=== PATIENT | female | born 1970 | race Caucasian/White ===

== ENCOUNTER 2019-12-29 18:39 | Emergency (ER) | payer OTHER, SELFPAY ==
[2019-12-29] VITALS (10 sets, daily range): BP systolic 101–130; BP diastolic 73–88; PULSE 54–79; RESP 14–21; TEMP 36.7; O2SAT 96–100
--- NOTE | ~2019-12-29 | XR_ITS ---
EXAMINATION: XR chest 2V DATE: 12/29/2019 19:15 INDICATION: Chest pressure. TECHNIQUE: Frontal and lateral views of the chest were obtained. COMPARISON: None. FINDINGS: The chest demonstrates clear lungs without pneumonia, pleural effusion, or pneumothorax. Th e heart size is normal. IMPRESSION: 1. No acute cardiopulmonary disease. Reviewed, dictated and finalized at location A.
--- NOTE | 2019-12-29 18:49 | ECG_ITS ---
Measurements Intervals [place] Rate: 71 P: 38 [place]: 114 QRS: 67 QRSD: 80 T: 42 QT: 381 QTc: 414 Interpretive Statements SINUS RHYTHM WITH SHORT [place] INTERVAL BASELINE ARTIFACT- I, III, AVL BORDERLINE ECG Electronically Signed On 12-30-2019 7:03:53 CDT by Jean Paul Benitez D.O.
[2019-12-29] MEDS: ASPIRIN 81 MG CHEWABLE TABLET 324 MG PO (18:55)
[2019-12-29 19:38] LABS: Basophils Percent Auto 0.3 % (0.2-1.2); Eosinophils Percent Auto 0.2 % (0-4.4); Hematocrit 38.6 % (37.0-47.0); Hemoglobin 13.4 g/dL (12.0-15.0); Immature Granulocyte Absolute 0.01 K/mm3 (0.00-0.031); Immature Granulocyte Percent A 0.2 % (0-0.5); Lymphocytes Absolute Auto 2.92 K/mm3 (0.9-3.2); Lymphocytes Percent Auto 44.6 % (18.3-44.2); Mean Corpuscular HGB Conc 34.7 g/dl (32-36); Mean Corpuscular Hemoglobin 28.9 pg (26-34); Mean Corpuscular Volume 83.4 fl (80-100); Mean Platelet Volume 9.9 fl (7.4-10.4); Monocytes Absolute Auto 0.4 K/mm3 (0.1-0.6); Monocytes Percent Auto 6.6 % (2.6-8.5); Neutrophils Absolute Auto 3.2 K/mm3 (1.3-6.7); Neutrophils Percent Auto 48.1 % (45.5-73.1); Platelet Count Result 319 k/mm3 (150-375); Red Blood Count 4.63 M/mm3 (4.2-5.4); Red Cell Distribution Width 12.4 % (11.5-14.5); White Blood Count 6.5 K/mm3 (4.5-10.0)
--- NOTE | 2019-12-29 19:38 | ED.GENADULT ---
HPI - General Adult General Chief complaint: Chest Pain Stated complaint: chest pain, palpitations Time Seen by Provider: 12/29/19 19:05 History of Present Illness HPI narrative: Patient is a 49-year-old female who presents the ER with anxiety versus chest pain. Patient reports that she had about 50 people over to her home in an outdoor setting 3 days ago for a graduation green party for her son. She was then told today that 1 of the guests was going to undergo COVID testing because they have been exposed to another friend. That person is asymptomatic. Patient reports she has been thinking about that all day and that coupled with her mom's history of anxiety and depression and being hospitalized in a prison has been giving her great stress. Patient's pain is central pressure and associate with anxiety, tachypnea, and tingling of her lips and hands and feet. She is found no alleviating factors. Related Data Home Medications Medication Instructions Recorded Confirmed No Home Medications 12/29/19 12/29/19 Allergies Allergy/AdvReac Type Severity Reaction Status Date / Time minocycline Allergy Unknown Dizziness Verified 12/29/19 19:33 Review of Systems Review of Systems: All systems reviewed & are unremarkable except as noted in HPI and below Constitutional: Constitutional: Denies chills, Denies fever(s) and Denies weakness ENT: Denies nasal congestion and Denies sore throat Cardiovascular: Cardiovascular: Reports chest pain, Denies rapid heart rate and Denies radiating jaw, neck or arm pain Respiratory: Respiratory: Denies cough, Reports dyspnea and Denies wheezing Gastrointestinal: Gastrointestinal: Denies diarrhea, Denies nausea and Denies vomiting Neurologic: Denies focal weakness and Reports numbness Psychiatric: Psychiatric: Reports anxiety PMFSH Past Medical History Medical History (Updated 12/29/19 @ 21:30 by Simon Oscar MD) Anxiety Depression Surgical History Surgical History (Updated 12/29/19 @ 19:40 by Simon Oscar MD) No pertinent past surgical history Social History Social History Smoking status: Never smoker Second hand tobacco smoke exposure: No Alcohol intake: current Exam Narrative: Exam Narrative: GENERAL: Anxious-appearing, well-nourished, and in no acute distress. HEAD: Normocephalic, atraumatic. CHEST: Clear to auscultation. No respiratory distress. HEART: Regular rate and rhythm. Normal peripheral pulses. ABDOMEN: Soft, nontender, nondistended. EXTREMITIES: Normal range of motion. No edema. SKIN: Warm, dry, no rash. NEURO: Alert and oriented x3. PSYCH: Normal mood and affect. Course Course Emergency Course: Symptoms resolved with Ativan. Discharge home. Vital Signs Vital signs: Vital Signs Temperature 98.0 F 12/29/19 18:45 Pulse Rate 78 12/29/19 18:45 Respiratory Rate 18 12/29/19 18:45 Blood Pressure 130/80 12/29/19 18:45 Pulse Oximetry 100 12/29/19 18:45 Temperature 98.0 F 12/29/19 18:45 Pulse Rate 54 L 12/29/19 20:16 Respiratory Rate 18 12/29/19 20:16 Blood Pressure 113/73 12/29/19 20:16 Pulse Oximetry 97 12/29/19 20:16 Medical Decision Making Vital Signs Vital Signs: Vital Signs Temperature 98.0 F 12/29/19 18:45 Pulse Rate 78 12/29/19 18:45 Respiratory Rate 18 12/29/19 18:45 Blood Pressure 130/80 12/29/19 18:45 Pulse Oximetry 100 12/29/19 18:45 Temperature 98.0 F 12/29/19 18:45 Pulse Rate 54 L 12/29/19 20:16 Respiratory Rate 18 12/29/19 20:16 Blood Pressure 113/73 12/29/19 20:16 Pulse Oximetry 97 12/29/19 20:16 Lab Data Result diagrams: 12/29/19 19:30 12/29/19 19:30 Labs: Lab Results 12/29/19 12/29/19 12/29/19 Range/Units 19:30 19:30 19:30 WBC 6.5 (4.5-10.0) K/mm3 RBC 4.63 (4.2-5.4) M/mm3 Hgb 13.4 (12.0-15.0) g/dL Hct 38.6 (37.0-47.0) %
[2019-12-29 19:49] LABS: Prothrombin Time 12.7 Seconds (11.1-14.7)
[2019-12-29 19:50] LABS: Partial Thromboplastin Time 25.3 SECONDS (22.3-36.8)
[2019-12-29 19:51] LABS: Blood Urea Nitrogen 3 mg/dL (7-17); Calcium 9.4 mg/dL (8.4-10.2); Carbon Dioxide 23 mmol/L (22-30); Chloride 105 mmol/L (98-107); Estimated CRCL calculation 76 ml/min; Estimated Glomerular Filt Rate > 60; Glucose 103 mg/dL (65-105); Potassium 3.1 mmol/L (3.4-5.0); Sodium 138 mmol/L (137-145)
[2019-12-29 20:03] LABS: Troponin I < 0.012 ng/mL (0.000-0.034)
== END 2019-12-29 21:53 | disposition home or self-care (01) ==
PROVIDERS: Emergency Medicine; Emergency Provider Emergency Medicine; PCP Family Medicine
DX: F41.9 Anxiety disorder, unspecified (principal); R93.1 Abnormal findings on diagnostic imaging of heart and coronary circulation
CPT/HCPCS: 36415; 71046; 80048; 84484; 85025; 85610; 85730; 93005; 96374; 99284; A9270; J2060

== ENCOUNTER → 2020-07-13 16:16 | Outpatient (CLI) | payer OTHER, SELFPAY ==
--- NOTE | ~2020-07-13 | MM_ITS ---
EXAMINATION: MM screening [facility] BI w lisa HISTORY: Screening mammogram TECHNIQUE: Craniocaudal and mediolateral oblique 3-D tomosynthesis images were obtained and synthetic 2-D images were generated. CAD analysis was submitted and interpreted. COMPARISON: 03/09/2019, 01/20/2018 bilateral digital screening mammogram examinations 8. 20 diagnostic left digital mammogram 01/2017, 01/04/2016, 11/10/2014, 11/04/2013 bilateral digital screening mammogram BREAST PARENCHYMAL COMPOSITION: The breasts are extremely dense, which lowers the sensitivity of mamm ography. FINDINGS: Stable mild asymmetry. Bilateral benign calcifications, largely stable since 11/04/2013. The re is no evidence of suspicious mass, calcification, or architectural distortion to suggest malignanc y in either breast. There has been no suspicious interval change. IMPRESSION: 1. No mammographic evidence of malignancy. 2. Recommend routine screening mammography in one year. BI-RADS Category 2: Benign finding(s). Reviewed, dictated and finalized at location A. HT DISPATCHER
== END ==
PROVIDERS: Visit Provider Obstetrics & Gynecology
DX: Z12.31 Encounter for screening mammogram for malignant neoplasm of breast (principal)
CPT/HCPCS: 77063; 77067

== ENCOUNTER → 2021-10-18 17:00 | Outpatient (CLI) | payer OTHER, SELFPAY ==
--- NOTE | ~2021-10-18 | MM_ITS ---
EXAMINATION: MM screening [facility] BI w lisa HISTORY: Screening mammogram TECHNIQUE: Craniocaudal and mediolateral oblique 3-D tomosynthesis images were obtained and synthetic 2-D images were generated. CAD analysis was submitted and interpreted. COMPARISON: 07/05/2020, 03/05/2019, 01/20/2018 bilateral screening mammogram examinations BREAST PARENCHYMAL COMPOSITION: The breasts are extremely dense, which lowers the sensitivity of mamm ography. FINDINGS: Stable mild fibroglandular asymmetry. Scattered bilateral benign calcifications. There is n o evidence of suspicious mass, calcification, or architectural distortion to suggest malignancy in ei ther breast. There has been no suspicious interval change. IMPRESSION: 1. No mammographic evidence of malignancy. 2. Recommend routine screening mammography in one year. BI-RADS Category 2: Benign finding(s). Reviewed, dictated and finalized at location A.
== END ==
PROVIDERS: PCP Family Medicine; Visit Provider Family Medicine
DX: Z12.31 Encounter for screening mammogram for malignant neoplasm of breast (principal)
CPT/HCPCS: 77063; 77067

== ENCOUNTER → 2023-01-02 10:00 | Outpatient (CLI) | payer OTHER, SELFPAY ==
--- NOTE | ~2023-01-02 | MM_ITS ---
EXAMINATION: MM screening [facility] BI w lisa HISTORY: Screening TECHNIQUE: Craniocaudal and mediolateral oblique 3-D tomosynthesis images were obtained and synthetic 2-D images were generated. CAD analysis was submitted and interpreted. COMPARISON: Comparison to multiple prior studies sequentially, with oldest reviewed study dated 09/2016. BREAST PARENCHYMAL COMPOSITION: The breasts are extremely dense, which lowers the sensitivity of mamm ography FINDINGS: There is no mammographic evidence for malignancy in the right breast. There is a cluster of indeterminate calcifications in the upper outer quadrant of the left breast, middle third. IMPRESSION: 1. Clustered indeterminate left breast calcifications, upper outer quadrant. 2. Magnification views are recommended. BI-RADS Category 0: Incomplete: Needs additional imaging evaluation. Reviewed, dictated and finalized at location A.
== END ==
PROVIDERS: PCP Obstetrics & Gynecology; Visit Provider Family Medicine
DX: Z12.31 Encounter for screening mammogram for malignant neoplasm of breast (principal); R92.8 Other abnormal and inconclusive findings on diagnostic imaging of breast
CPT/HCPCS: 77063; 77067

== ENCOUNTER → 2023-01-30 07:47 | Outpatient (CLI) | payer OTHER, SELFPAY ==
--- NOTE | ~2023-01-30 | MM_ITS ---
EXAMINATION: MM diagnostic mammo unilat LT HISTORY: Follow-up left breast calcifications TECHNIQUE: Additional 3-D tomosynthesis images of the left breast were performed and synthetic 2-D im ages were generated. CAD analysis was submitted and interpreted. COMPARISON: Comparison to multiple prior studies sequentially, with oldest reviewed study dated 12/2017. BREAST PARENCHYMAL COMPOSITION: The breasts are extremely dense, which lowers the sensitivity of mamm ography FINDINGS: The clustered indeterminate calcifications in the upper outer quadrant of the left breast h ave a monomorphic appearance and are most likely benign. IMPRESSION: 1. Clustered left breast calcifications are likely benign. 2. Recommend 6 month follow-up diagnostic bilateral mammogram BI-RADS category 3, probably benign findings. Reviewed, dictated and finalized at location A.
== END ==
PROVIDERS: PCP Family Medicine; Visit Provider Obstetrics & Gynecology
DX: R92.1 Mammographic calcification found on diagnostic imaging of breast (principal)
CPT/HCPCS: 77065

== ENCOUNTER 2023-08-07 07:54 | Outpatient (CLI) | payer OTHER, SELFPAY ==
--- NOTE | ~2023-08-07 | MM_ITS ---
EXAMINATION: MM diagnostic noam BI w lisa HISTORY: Follow-up left breast calcifications TECHNIQUE: Additional 3-D tomosynthesis images of the breasts were performed and synthetic 2-D images were generated. CAD analysis was submitted and interpreted. COMPARISON: Comparison to multiple prior studies sequentially, with oldest reviewed study dated 12/2017. BREAST PARENCHYMAL COMPOSITION: Dense: The breasts are extremely dense, which lowers the sensitivity of mammography. FINDINGS: Clustered punctate calcifications in the upper outer quadrant of the left breast are unchan ged from prior examination, likely benign. No suspicious masses or architectural distortion. No evide nce for malignancy in the right breast. IMPRESSION: 1. Stable likely benign left breast calcifications. 2. Recommend 6 month follow-up diagnostic left mammogram BI-RADS category 3, probably benign findings. Reviewed, dictated and finalized at location A. HERS' ASSISTANT
== END 2023-08-07 07:55 ==
LOC: MICIMG 07:55
PROVIDERS: PCP Obstetrics & Gynecology; Visit Provider Obstetrics & Gynecology
DX: R92.8 Other abnormal and inconclusive findings on diagnostic imaging of breast (principal)
CPT/HCPCS: 77062; 77066; G0279

== ENCOUNTER 2023-08-18 15:15 | Outpatient (CLI) | payer OTHER, SELFPAY ==
--- NOTE | ~2023-08-18 | XR_ITS ---
EXAMINATION: XR abdomen/kub 1V INDICATION: Unspecified abdominal pain TECHNIQUE: Supine views of the abdomen were obtained on 2 radiographs. COMPARISON: None FINDINGS: A moderate volume of colonic stool is present. There are phleboliths of the pelvis. No dila wade loops of bowel are identified. There is mild osteoarthritis of the hips. IMPRESSION: 1. Moderate volume of colonic stool. Reviewed, dictated and finalized at location L. ANTINE INSPECTOR
[2023-08-18 15:32] LABS: Hematocrit 41.3 % (37.0-47.0); Hemoglobin 13.3 g/dL (12.0-15.0); Mean Corpuscular HGB Conc 32.2 g/dl (32-36); Mean Corpuscular Hemoglobin 28.5 pg (26-34); Mean Corpuscular Volume 88.4 fl (80-100); Mean Platelet Volume 9.8 fl (7.4-10.4); Platelet Count Result 332 k/mm3 (150-375); Red Blood Count 4.67 M/mm3 (4.2-5.4); Red Cell Distribution Width 13.1 % (11.5-14.5); White Blood Count 6.4 K/mm3 (4.5-10.0)
[2023-08-18 15:44] LABS: Alanine Aminotransferase 20 U/L (6-35); Albumin Level 4.2 g/dL (3.5-5.1); Alkaline Phosphatase 50 U/L (38-126); Anion Gap 5 mmol/L (8-16); Aspartate Amino Transferase 25 U/L (14-36); Bilirubin,Total 0.6 mg/dL (0.2-1.3); Blood Urea Nitrogen 10 mg/dL (7-17); Calcium 8.7 mg/dL (8.4-10.2); Carbon Dioxide 28 mmol/L (22-30); Chloride 102 mmol/L (98-107); Estimated Glomerular Filt Rate > 60; Glucose 130 mg/dL (65-110); Lipase 136 U/L (23-300); Potassium 3.3 mmol/L (3.4-5.0); Sodium 135 mmol/L (137-145)
== END 2023-08-18 15:16 | disposition home or self-care (01) ==
LOC: ANHLAB 15:16
PROVIDERS: PCP Family Medicine; Visit Provider Physician Assistant
DX: D64.9 Anemia, unspecified (principal); R10.9 Unspecified abdominal pain; Z13.1 Encounter for screening for diabetes mellitus
CPT/HCPCS: 36415; 74018; 80053; 83690; 85027

== ENCOUNTER 2024-02-06 08:12 | Outpatient (CLI) | payer OTHER, SELFPAY ==
--- NOTE | ~2024-02-06 | MM_ITS ---
EXAMINATION: MM diagnostic noam LT w lisa HISTORY: Follow-up left breast calcifications TECHNIQUE: Additional 3-D tomosynthesis images of the left breast were performed and synthetic 2-D im ages were generated. CAD analysis was submitted and interpreted. COMPARISON: Comparison to multiple prior studies sequentially, with oldest reviewed study dated 03/09. BREAST PARENCHYMAL COMPOSITION: Dense: The breasts are extremely dense, which lowers the sensitivity of mammography. FINDINGS: There are no new masses or architectural distortion in the left breast to suggest malignanc y. There are stable punctate calcifications clustered in the upper outer quadrant of the left breast, likely benign. IMPRESSION: 1. Stable likely benign left breast calcifications. 2. Recommend 6 month follow-up diagnostic bilateral mammogram BI-RADS category 3, probably benign findings. Reviewed, dictated and finalized at location B.
== END 2024-02-06 08:13 ==
LOC: MICIMG 08:13
PROVIDERS: PCP Family Medicine; Visit Provider Obstetrics & Gynecology
DX: R92.1 Mammographic calcification found on diagnostic imaging of breast (principal); R92.8 Other abnormal and inconclusive findings on diagnostic imaging of breast
CPT/HCPCS: 77061; 77065; G0279

== ENCOUNTER 2024-02-12 02:10 | Day surgery (SDC) | payer OTHER, SELFPAY ==
[2024-02-10 09:28] VITALS: BMI 25.7
--- NOTE | 2024-02-10 09:34 | PC.NURSE ---
Report to the Outpatient Waiting Room, entrance under the green pavilion located off [facility], at time _1000_ on date _02/12/24_. Planned Procedure Time: _1200_.? Time changes happen often and if your time is changed the preop area will call you the afternoon before. - You and your visitor will be asked to self-screen and do not enter if you have any COVID symptoms. Please call surgeon if you need to reschedule. - A mask is optional within the hospital at this time. Patients may have clear liquids (water, carbonated beverages, clear teas, apple juice) until 3 hours prior to surgery with a maximum of 20 ounces. - No food from midnight until time of surgery and no smoking - Infants may have breast milk until 4 hours before surgery, infant formula 6 hours prior to surgery. - Children will be allowed to drink immediately following surgery.? If applicable, please bring a bottle or sippy cup to assist with drinking. Juice, water, soda, and popsicles are readily available.? For infants on formula, please bring formula the day of surgery.? Pacifiers are allowed. Take only the following medications with a SIP of water on the morning of surgery: __NONE DO NOT STOP ANY OF YOUR OTHER PRESCRIPTION MEDICATIONS PRIOR TO SURGERY EXCEPT THE FOLLOWING Medications to discontinue per physician ____VITAMINS Date to take last dose 02/09/23 Please no make-up, nail eritrean, hairspray, perfume, deodorant, or body powder the day of surgery.? No jewelry (including any body piercings) or valuables the day of surgery, leave them at home.? Please take a shower or bath the night before, or the morning of, surgery with an antibacterial soap.? Wear comfortable, loose fitting clothing.? Children are encouraged to wear pajamas. - Jewelry must be removed prior to entering the operating room.? Rings and piercings that are not removed may be cut off. - The hospital will not accept responsibility for valuables.? - Please leave all valuables, including medications, at home the day of surgery. If you are going home after surgery, a licensed lifter driver must drive you home.? - NO public transportation without another adult if you receive anesthesia. - We recommend that an adult stay with you for 24 hours following discharge. - We also recommend that you do not drive, make important decision, drink alcoholic beverages, or take any drugs that were not prescribed by your health care provider for at least 24 hours after your discharge time. For Pediatric surgeries, we recommend two adults accompany the child home. Follow any additional instructions given to you from your surgeon. Telephone instructions given to __PATIENT_and asked if any additional questions and then verbalized understanding. Patient advised to call surgeon office or pre surgery nurse liaison [phone] if any additional questions.
[2024-02-12] VITALS (10 sets, daily range): BP systolic 101–113; BP diastolic 69–79; PULSE 50–76; RESP 12–20; TEMP 36.2–36.6; O2SAT 95–100
--- NOTE | 2024-02-12 11:19 | WPDANESEPPF ---
Anes - Initial Pre Proc Eval Procedure: Operation Date: 02/12/24 12:00 Proposed Procedures p Leonid Bunionectomy with Hardware Implant Left Foot - Shaan Flores DPM Date/Time: 02/12/24 11:19 Surgeon: Shaan Flores DPM Pre Op Diagnosis: hallux valgus left foot Patient Data Age: 53 Gender: F Height: 1.65 m Weight: 73 kg Last Vital Signs Temp 97.9 F 02/12/24 10:35 Pulse 76 02/12/24 10:35 Resp 16 02/12/24 10:35 BP 102/76 02/12/24 10:35 Pulse Ox 100 02/12/24 10:35 O2 Del Method Room Air 02/12/24 10:35 Allergies Allergy/AdvReac Type Severity Reaction Status Date / Time minocycline Allergy Unknown Dizziness Verified 02/12/24 11:19 Home Medications Medication Instructions Recorded Confirmed Type multivitamin 1 tablet PO DAILY 09/11/20 02/12/24 History loratadine 10 mg tablet (Claritin) 10 mg PO DAILY 10/19/21 02/12/24 History norethindrone 1 mg-ethinyl 1 tablet PO DAILY #84 tabs 06/26/23 02/12/24 Rx estradiol 10 mcg (24)-iron 10 mcg(2) tablet (Lo Loestrin Fe) fluticasone propionate 50 1 spray intranasal DAILY 02/10/24 02/12/24 History mcg/actuation nasal spray,suspension (Allergy Relief (fluticasone)) ergocalciferol (vitamin D2) 1,250 1,250 mcg PO WEEKLY #13 caps 02/11/24 02/12/24 Rx mcg (50,000 unit) capsule Patient hx anesthesia problems: none Family hx anesthesia problems: none Results Review: All pre-operative results and documents have been reviewed as part of the pre-operative evaluation. [facility] Past Medical History Medical History Anxiety Depression Surgical History Surgical History No pertinent past surgical history Family History Family History Other Diabetes mellitus Family history of arthritis Hypertension Social History Social History Smoking status: Never smoker Second hand tobacco smoke exposure: No Alcohol intake: current Drinks per week: 3 Substance use: never Substance use type: does not use Lack of Transportation: No Lack of Food: Never True Current Housing: I Have Housing Concerned About Future Housing: No Difficulty Paying Gas/Electric Bills: No Difficulty Paying for Meds: No Currently Unemployed: No Education: Associate Degree Difficulty w/ Childcare or Family Care: No Living arrangements: with family Occupation/Education: occupation 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 Informed Consent: The patient's anesthetic plan and its attendant risks and benefits were discussed with the patient/family/POA. Questions were solicited and answers provided to the satisfaction of the patient/family/POA.
[2024-02-12] MEDS: LACTATED RINGERS 1,000 ML 30 ML IV CONT (11:30)
[2024-02-12 11:45] LABS: BEDSIDEPREGUCG Negative
--- NOTE | 2024-02-12 11:48 | PM.IMHP ---
H&P: HPI History of Present Illness Date/Time: 02/12/24 11:48 Chief Complaint: Painful bunion left foot that has failed conservative care [facility] Past Medical History Medical History (Updated 02/12/24 @ 11:51 by Shaan Flores DPM) Anxiety Depression Surgical History Surgical History No pertinent past surgical history Family History Family History Other Diabetes mellitus Family history of arthritis Hypertension Social History Social History Smoking status: Never smoker Second hand tobacco smoke exposure: No Alcohol intake: current Drinks per week: 3 Substance use: never Substance use type: does not use Lack of Transportation: No Lack of Food: Never True Current Housing: I Have Housing Concerned About Future Housing: No Difficulty Paying Gas/Electric Bills: No Difficulty Paying for Meds: No Currently Unemployed: No Education: Associate Degree Difficulty w/ Childcare or Family Care: No Living arrangements: with family Occupation/Education: occupation 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 Gender identity (if verbalized by the patient): Female Meds Home Medications and Allergies Home Medications Medication Instructions Recorded Confirmed Type multivitamin 1 tablet PO DAILY 09/11/20 02/12/24 History loratadine 10 mg tablet (Claritin) 10 mg PO DAILY 10/19/21 02/12/24 History norethindrone 1 mg-ethinyl 1 tablet PO DAILY #84 tabs 06/26/23 02/12/24 Rx estradiol 10 mcg (24)-iron 10 mcg(2) tablet (Lo Loestrin Fe) fluticasone propionate 50 1 spray intranasal DAILY 02/10/24 02/12/24 History mcg/actuation nasal spray,suspension (Allergy Relief (fluticasone)) ergocalciferol (vitamin D2) 1,250 1,250 mcg PO WEEKLY #13 caps 02/11/24 02/12/24 Rx mcg (50,000 unit) capsule Allergies Allergy/AdvReac Type Severity Reaction Status Date / Time minocycline Allergy Unknown Dizziness Verified 02/12/24 11:19 Vital Signs Vital Signs - 24 hr 02/12/24 10:35 Temperature 36.6 C Pulse Rate 76 Respiratory Rate 16 Blood Pressure 102/76 Pulse Oximetry 100 Oxygen Delivery Room Air Exam Narrative: Laterally deviated hallux left foot with pain on palpation. NVSI Rest of exam unremarkable Assessment and Plan Assessment and plan (1) Hallux abducto valgus: Code(s): M20.10 - Hallux valgus (acquired), unspecified foot Status: Acute Plan Bunionectomy with hardware left foot
--- NOTE | 2024-02-12 12:00 | WPDHPUPDATE1 ---
History and Physical Update Update Date/Time: 02/12/24 12:00 History and Physical has been reviewed, including an updated exam of the patient. There are NO changes in the patient's condition. Risks, benefits, and alternatives have been discussed and questions answered. Patient agrees to proceed with procedure.
[2024-02-12] MEDS: ceFAZolin 2 GM/D5W 50 ML 2 GM/50 ML BAG IVPB (12:06)
[2024-02-12] MEDS: BUPivacaine HCL 0.5% 10 ML AMP 20 ML INFILTRATE (12:33)
[2024-02-12] MEDS: NEOMYCIN/POLYMYXIN/BACITRACIN OINTMENT 15 GM TUBE 1 APPLIC TOPICAL (13:02)
--- NOTE | 2024-02-12 13:10 | W.PM.PROC2 ---
Procedure Note - Detailed Date of Procedure 02/12/24 Pre-op Diagnosis hallux valgus left foot Post-op Diagnosis Same Procedure Performed Bunion correction with hardware left foot Surgeon Shaan Flores DPM Anesthesia General Description of Procedure Under monitored sedation patient was brought into the operating room and placed on the operating table in a supine position. Following general anesthesia the foot was then scrubbed, prepped, and draped in the usual aseptic manner. An [place] bandage was used to exsanguinate the patient?s right foot and the ankle tourniquet was inflated. Attention was then directed to the dorsal aspect of the 1 st metatarsophalangeal joint where linear incision was made medial to the extensor tendon. It was deepened down to the level of the bone using sharp and blunt dissection with care being taken to identify and retract all vital and neurovascular structures. A linear capsulotomy was made and the head of the metatarsal was exposed to the operative field. The medial eminence was resected. The first interspace was accessed and the adductor hallucis tendon was transected. The fibular sesamoid was freed of all of its soft tissue attachments. A v-type osteotomy was made. The head was moved laterally and fixated in place with 1 10x10 Brennan staple. At this point the decision was made to perform the Gilmer procedure. A wedge osteotomy was made and fixated with a 8x8 staple. All remaining bone eminences were removed with a bone saw and all rough edges were smoothed. The wound was flushed with copious amounts of sterile normal saline and the deep tissue was repaired using 3-0 vicryl, skin was repaired using 5-0 vicryl. The wound was then injected with 1cc of Decadron and was covered with a dry, sterile compressive dressing consisting of steristrips, antibiotic ointment, Adaptic, 4 x4?s Tiburcio and Coban. Ankle tourniquet was deflated; prompt capillary refill response was noted to all digits of the left foot. Patient tolerated the procedure and anesthesia well, was transferred to the recovery room with vital signs stable and neurovascular status intact to all digit of the left foot. Following a period of post-op monitoring the patient will be discharged home with written and oral post-op instructions. Implants [place] staple x 2 Complications No immediate complications
[2024-02-12] MEDS: fentaNYL CITRATE INJ (*CRX) 100 MCG/2 ML VIAL 25 MCG IV PUSH ×5 (13:24→14:05)
[2024-02-12] MEDS: oxyCODONE HCL (*CRX) 5 MG TAB IR PO (15:00)
== END 2024-02-12 15:29 | disposition home or self-care (01) ==
PROVIDERS: PCP Family Medicine; Visit Provider Podiatrist Foot & Ankle Surgery
PROC: (CPT 28299; principal; 2024-02-12 12:00)
DX: M20.12 Hallux valgus (acquired), left foot (principal)
CPT/HCPCS: 28299; A9270; C1713; J0690; J1100; J2250; J2405; J2704; J3010; J7120

== ENCOUNTER 2024-08-10 08:01 | Outpatient (CLI) | payer OTHER, SELFPAY ==
--- NOTE | ~2024-08-10 | MM_ITS ---
EXAMINATION: MM diagnostic noam BI w lisa HISTORY: Six-month follow-up of left breast calcifications TECHNIQUE: 3-D tomosynthesis images of the breasts were performed and synthetic 2-D images were gener ated. CAD analysis was submitted and interpreted. COMPARISON: 02/06/2024, 08/07/2023 BREAST PARENCHYMAL COMPOSITION:Dense: The breasts are extremely dense, which lowers the sensitivity o f mammography. FINDINGS: Parenchymal pattern of the breasts is unchanged. No suspicious mass lesion or distortion se en. Stable benign-appearing calcifications bilaterally. No suspicious microcalcifications seen. IMPRESSION: No mammographic evidence for malignancy. BI-RADS Category 2: Benign finding(s). Reviewed, dictated and finalized at location . [facility]
== END 2024-08-10 08:02 | disposition home or self-care (01) ==
LOC: MICIMG 08:02
PROVIDERS: PCP Family Medicine; Visit Provider Obstetrics & Gynecology
DX: R92.1 Mammographic calcification found on diagnostic imaging of breast (principal)
CPT/HCPCS: 77062; 77066; G0279